=== PATIENT | female | born 1955 | race Caucasian/White ===

== ENCOUNTER → 2016-07-22 | Outpatient (CLI) | payer MEDICARE ==
[~2016-07-22] MED LIST: ALBUTEROL2.5 MG/NEB IN; AMARYL4 MG PO; ASPIRIN 81MG TA81 MG PO; CEFDINIR300 MG PO; DILTIAZEM ER 1120 MG PO; FUROSEMIDE80 M1 PO; GABAPENTIN100 M1 PO; HYDROCODONE-APA1 TA2 PO; JANUVIA50 MG PO; LANTUS INS100 UNITS/ SC; LASIX40 MG PO; LISINOPRIL 10MG10 MG PO; LISINOPRIL 5MG T5 MG PO; METFORMIN1000 MG PO; NYSTATIN C30 GM/TUB1 TP; PANTOPRAZOLE SO40 M1 PO; POTASSIUM1 PDS PO; PRAVASTATIN 40M40 MG PO; PREDNISONE 10MG10 MG PO; PROAIR HFA0.09 MG/AC IH; STOOL SOFTENER240 MG PO; SYNTHROID 0.0.075 MG PO
[2016-07-22 11:28] LABS: HEMOGLOBIN 13.1 g/dL (12.2-16.2); LYMPH # 1.4 K/mm3 (0.7-4.5); LYMPH % 23.4 % (10-50.0)
[2016-07-22 13:13] LABS: BUN 27 mg/dL (7-18); GFR (ESTIMATED) 46 ML/MIN (59-)
== END ==
LOC: LAB 11:00
PROVIDERS: Internal Medicine
DX: E11.42 Type 2 diabetes mellitus with diabetic polyneuropathy (principal); E66.01 Morbid (severe) obesity due to excess calories; I10 Essential (primary) hypertension; I27.81 Cor pulmonale (chronic); E03.9 Hypothyroidism, unspecified; E78.5 Hyperlipidemia, unspecified; N18.3 Chronic kidney disease, stage 3 (moderate)